=== PATIENT | female | born 1985 | race Caucasian/White ===

== ENCOUNTER 2022-02-20 20:05 | Emergency (ER) | payer BC, SELFPAY ==
[2022-02-20 20:58] VITALS: BP 131/87; PULSE 98; RESP 18; TEMP 36.7; O2SAT 100; BMI 39.2
--- NOTE | 2022-02-20 21:03 | US_ITS ---
PROCEDURE INFORMATION: Exam: US , Transvaginal Exam date and time: 02/20/2022 10:02 PM Age: 36 years old Clinical indication: complicated by abdominal or pelvic pain; Other: Bilateral pelvic pain; Gestational age or lmp: Unknown; TECHNIQUE: Imaging protocol: Real-time transvaginal obstetrical ultrasound of the maternal pelvis with image documentation. Transvaginal imaging was used for better evaluation of the fetus, adnexa, and/or cervix. COMPARISON: No relevant prior studies available. FINDINGS: Gestation: Single intrauterine gestation. Ultrasonographic age of 6 weeks and 0 days. heart rate: No cardiac activity is observed. Placenta: No subchorionic hemorrhage. BIOMETRY: [place]Rump length (CRL): [place]-rump length is 3 mm. MATERNAL: Right ovary/adnexa: Right ovary measures 3 x 2.5 x 2.5 cm. Normal vascularity. No mass. Left ovary/adnexa: Left ovary measures 2.6 x 1.9 x 3.1 cm. Normal vascularity. No mass. IMPRESSION: Intrauterine gestation with crown-rump length of 3 mm equivalent to 6 weeks and 0 days. No cardiac activity is observed at this time and these findings could be due to the early gestational state. Recommend continued follow-up with beta HCG and short-term ultrasound.
[2022-02-20 21:08] LABS: Microscopic, Urine URINE MICROSCOPIC (MICROSCOPIC)
[2022-02-20 21:09] LABS: Basophils # 0.5 K/mm3 (0-0.2); Basophils % 2.9 % (0.1-2.0); Eosinophils # 0.2 K/mm3 (0.0-0.4); Hematocrit 45.5 % (37.0-47.0); Hemoglobin 15.2 g/dL (12.2-16.2); Lymphocytes # 3.4 K/mm3 (0.7-4.5); Lymphocytes % 19.8 % (10-50); Mean Corpuscular HGB Conc 33.4 g/dL (31.8-35.4); Mean Corpuscular Hemoglobin 31.5 pg (27.0-31.2); Mean Corpuscular Volume 94.4 fl (81-99); Mean Platelet Volume 7.7 fl (7.4-10.4); Monocytes % 6.1 % (1.7-9.3); Neutrophils % 70.2 % (37.0-80.0); Platelet Count 410 K/mm3 (142-424); Red Blood Count 4.82 M/mm3 (4.20-5.40); Red Cell Distribution Width 13.6 % (11.5-17.5); White Blood Count 17.1 K/mm3 (4.8-10.8)
[2022-02-20 21:11] LABS: Chloride 103 mmol/L (98-107); Potassium 3.4 mmoL/L (3.5-5.1); Sodium 136 mmol/L (136-145)
[2022-02-20 21:12] LABS: Appearance,Urine SL CLOUDY (Clear); Bilirubin,Urine Negative (Negative); Blood, Urine 2+ (Negative); Color,Urine YELLOW (Yellow); Glucose,Urine (UA) Negative (Negative); Ketones,Urine Negative (Negative); Leukocyte Esterase,Urine 1+ (Negative); MANUAL DIFFERENTIAL MANUAL DIFFERENTIAL (MANUAL DIFF); Nitrate,Urine Negative (Negative); Protein,Urine Negative (Negative); Urobilinogen,Urine 0.2 EU/dl (0.2)
[2022-02-20 21:14] LABS: Alanine Aminotransferase 32 U/L (12-78); Albumin/Globulin Ratio 1.4 (1.1-1.8); Alkaline Phosphatase 72 U/L (38-126); Anion Gap 10.4 mEq/L (5-15); Aspartate Amino Transferase 29 U/L (14-36); Bilirubin,Total 0.4 mg/dl (0.2-1.3); Blood Urea Nitrogen 10 mg/dl (7-17); Calcium 9.7 mg/dl (8.4-10.2); Carbon Dioxide 26 mmol/L (22.0-30.0); Creatinine Clearance Estimated 148 mL/min (50-200); Estimated Glomerular Filt Rate 82 ml/min (>60); GFR (African American) 99 ML/MIN (>60); Globulin 2.9 g/dL (1.3-3.2); Glucose 110 mg/dl (74-100); HCG Qualitative, Serum Positive (Negative); Total Protein,Serum 6.9 g/dl (6.3-8.2)
[2022-02-20 21:31] LABS: HCG,Quantitative 4878 mIU/ml (0-5.42)
[2022-02-20 21:34] LABS: Eosinophils % 1 % (0-3); Lymphocytes % 21 % (10-50); Neutrophils % 66 % (42-76); Platelet Estimate Normal; RBC Morphology Normal; Total Cells Counted 100
[2022-02-20 21:39] LABS: Bacteria,Urine 1+ /lpf
--- NOTE | 2022-02-20 21:43 | HMH.EDPREG ---
ED Disposition Clinical Impression: Qualifiers: Weeks of gestation: less than 8 weeks Qualified Code(s): Z3A.01 - Less than 8 weeks gestation of Disposition: Home, Self-Care Condition on Discharge: Good Instructions: DI for -- Discomforts and Remedies Additional Instructions: pt to call pcp and ob next week for urine culture and f/u labs Referrals: Provider,Referral, MD [Primary Care Provider] - - Critical Care Critical Care Time: No Attestation: On 02/20/22, the high probability of a clinically significant, sudden or life threatening deterioration of the following system(s) required my full and direct attention, intervention and personal management. The time I documented below is in addition to time spent performing reported procedures but includes the following listed in this critical care notation. Medical Decision Making - Medical Records Medical records reviewed: Yes: I reviewed the patient's medical records. - G[place]me[place] Inquiry Pt receiving controlled substance: No Vital Signs: 02/20/22 20:58 Temperature 98.0 F Temperature Source Oral Pulse Rate [Apical] 98 H Respiratory Rate 18 Blood Pressure [Right Arm] 131/87 Blood Pressure Mean [Right Arm] 101 Blood Pressure Source [Right Arm] Automatic Cuff Blood Pressure Position [Right Arm] Sitting 02 Sat by Pulse Oximetry 100 Oxygen Delivery Method Room Air - Lab Data Lab results reviewed: Yes: I reviewed the patient's lab results. Lab Results 02/20/22 20:55: Urine Color Yellow, Urine Appearance Sl cloudy, Urine pH 6.0, Ur Specific [place] 1.020, Urine Protein Negative, Urine Glucose (UA) Negative, Urine Ketones Negative, Urine Blood 2+, Urine Nitrate Negative, Urine Bilirubin Negative, Urine Urobilinogen 0.2, Ur Leukocyte Esterase 1+ A, Urine RBC 3-5, Urine WBC 3-5, Ur Squamous Epith Cells 3-5, Urine Bacteria 1+ 02/20/22 20:55: WBC 17.1 H, RBC 4.82, Hgb 15.2, Hct 45.5, MCV 94.4, MCH 31.5 H, MCHC 33.4, RDW 13.6, Plt Count 410, MPV 7.7, Neut % (Auto) 70.2, Lymph % (Auto) 19.8, [place] % (Auto) 6.1, Eos % (Auto) 1.0, Baso % (Auto) 2.9 H, Neut # (Auto) 12.0 H, Lymph # (Auto) 3.4, [place] # (Auto) 1.0, Eos # (Auto) 0.2, Baso # (Auto) 0.5 H, Total Counted 100, Neutrophils % (Manual) 66, Band Neutrophils % 12.0 H, Lymphocytes % (Manual) 21, Eosinophils % (Manual) 1, Platelet Estimate Normal, RBC Morphology Normal 02/20/22 20:55: Sodium 136, Potassium 3.4 L, Chloride 103, Carbon Dioxide 26, Anion Gap 10.4, BUN 10, Creatinine 0.80, Estimated Creat Clear 148, Estimated GFR 82, Est GFR ( Amer) 99, Glucose 110 H, Calcium 9.7, Total Bilirubin 0.4, AST 29, ALT 32, Alkaline Phosphatase 72, Total Protein 6.9, Albumin 4.0, Globulin 2.9, Albumin/Globulin Ratio 1.4, HCG, Quant [id number] H 02/20/22 20:55: Serum HCG, Qual Positive Result diagrams: 02/20/22 20:55 02/20/22 20:55 Orders (Tests/Meds): ORDERS Category Date Time Status Urine Culture Stat Micro 02/20/22 20:55 Received - US Data US Images: Pelvis ED US Reviewed: Yes: I have viewed radiologist's interpretation Findings Narrative: see report Medical Decision Narrative: iup but no fht and no def uti - will ask pt to follow up at this time HPI - General Chief complaint: Abdominal Pain Stated complaint: lower abd pain, [id number] Time Seen by Provider: 02/20/22 21:43 Mode of Arrival: Ambulatory Source of Information: Patient, Medical Record Limitations: No Limitations Description of Symptoms (Recalled from ER Triage Doc. by RN): Patient c/o central lower abdominal pain. States the pain is sharp and constant. States that she found out she was two weeks ago but is unsure how far along she is. Does report that she has pain with urination - History of Present Illness HPI Narrative: acute pelvic pain today w/o vag bleeding or d/c - reports about 6 weeks - has pending ob appt next month - no uti sx MD Complaint: other (pelvic pain )
[2022-02-20 23:00] VITALS: BP 124/74; PULSE 90; RESP 18; TEMP 36.7; O2SAT 100
== END 2022-02-20 23:01 | disposition home or self-care (01) ==
PROVIDERS: Emergency Provider Emergency Medicine
DX: Z3A.01 Less than 8 weeks gestation of pregnancy (principal); R10.30 Lower abdominal pain, unspecified
CPT/HCPCS: 76817; 80053; 81001; 84702; 84703; 85007; 85025; 87086; 99284

== ENCOUNTER 2022-03-12 19:44 | Emergency (ER) | payer BC, SELFPAY ==
[2022-03-12 19:45] VITALS: BP 143/88; PULSE 88; RESP 16; TEMP 36.6; O2SAT 97; BMI 37.1
[2022-03-12 20:00] VITALS: BP 132/79; PULSE 80; O2SAT 97
[2022-03-12 20:11] LABS: Microscopic, Urine URINE MICROSCOPIC (MICROSCOPIC)
[2022-03-12 20:14] LABS: Basophils # 0.4 K/mm3 (0-0.2); Basophils % 2.7 % (0.1-2.0); Eosinophils # 0.3 K/mm3 (0.0-0.4); Eosinophils % 1.6 % (0.1-12.0); Hematocrit 45.1 % (37.0-47.0); Hemoglobin 15.1 g/dL (12.2-16.2); Lymphocytes # 3.7 K/mm3 (0.7-4.5); Lymphocytes % 22.9 % (10-50); Mean Corpuscular HGB Conc 33.6 g/dL (31.8-35.4); Mean Corpuscular Volume 95.3 fl (81-99); Mean Platelet Volume 7.6 fl (7.4-10.4); Monocytes # 0.8 K/mm3 (0.1-1.0); Monocytes % 5.1 % (1.7-9.3); Neutrophils # 10.8 K/mm3 (1.8-7.8); Neutrophils % 67.7 % (37.0-80.0); Platelet Count 444 K/mm3 (142-424); Red Blood Count 4.74 M/mm3 (4.20-5.40); Red Cell Distribution Width 13.7 % (11.5-17.5)
[2022-03-12 20:16] LABS: Urine Pregnancy, HCG Qual. Positive (Negative)
[2022-03-12 20:17] LABS: Appearance,Urine CLEAR (Clear); Bilirubin,Urine Negative (Negative); Blood, Urine 2+ (Negative); Color,Urine YELLOW (Yellow); Glucose,Urine (UA) Negative (Negative); Ketones,Urine Negative (Negative); Leukocyte Esterase,Urine 1+ (Negative); MANUAL DIFFERENTIAL MANUAL DIFFERENTIAL (MANUAL DIFF); Nitrate,Urine Negative (Negative); PH,Urine 6.5 (5.0-8.5); Protein,Urine Negative (Negative); Specific Gravity, Urine 1.025 (1.005-1.030)
[2022-03-12 20:22] LABS: Alanine Aminotransferase 28 U/L (12-78); Albumin/Globulin Ratio 1.3 (1.1-1.8); Alkaline Phosphatase 85 U/L (38-126); Amorphous Sediment,Urine 1+ /lpf; Anion Gap 10.9 mEq/L (5-15); Aspartate Amino Transferase 27 U/L (14-36); Blood Urea Nitrogen 9 mg/dl (7-17); Calcium 9.5 mg/dl (8.4-10.2); Calcium Oxalate Crystals,Urine 3+ /lpf; Carbon Dioxide 25 mmol/L (22.0-30.0); Chloride 104 mmol/L (98-107); Creatinine Clearance Estimated 128 mL/min (50-200); Estimated Glomerular Filt Rate 72 ml/min (>60); GFR (African American) 87 ML/MIN (>60); Glucose 101 mg/dl (74-100); Potassium 3.9 mmoL/L (3.5-5.1); Sodium 136 mmol/L (136-145); Squamous Epithelial Cell,Urine 20-50 #/hpf (0-5)
[2022-03-12 20:27] LABS: Bilirubin,Total 0.1 mg/dl (0.2-1.3); C-Reactive Protein 19.2 mg/L (0-4)
--- NOTE | 2022-03-12 20:30 | PC.NURSE ---
PT AWARE OF NEED FOR STOOL SAMPLE.
[2022-03-12 20:31] VITALS: BP 129/79; PULSE 83; O2SAT 98
--- NOTE | 2022-03-12 20:32 | US_ITS ---
PROCEDURE INFORMATION: Exam: US , Transvaginal Exam date and time: 03/12/2022 9:09 PM Age: 36 years old Clinical indication: Other: Midline abdomen pain; Gestational age or lmp: Lmp January 01 2022; ; Prior surgery; Surgery date: 6+ months; Surgery type: Gb and endometriosis surgey in past; Additional info: Abdominal pain TECHNIQUE: Imaging protocol: Real-time transvaginal obstetrical ultrasound of the maternal pelvis with image documentation. Transvaginal imaging was used for better evaluation of the fetus, adnexa, and/or cervix. COMPARISON: US OB TRANSVAGINAL 02/20/2022 10:02 PM FINDINGS: Gestation: Single live intrauterine gestation. Apparent contour abnormality of abdomen. heart rate: heart rate of 160 beats per minute. BIOMETRY: Gestational age (AUA): [place]-rump length of 1.91 cm, correlating with gestational age of 8 weeks 4 days. MATERNAL: Uterus: No subchorionic hemorrhage. Cervix: Closed cervix. Right ovary: Not visualized. No adnexal mass. Left ovary: Normal. No adnexal mass. Intraperitoneal space: No significant free fluid. IMPRESSION: 1. Single live intrauterine gestation. Apparent contour abnormality of abdomen, indeterminate significance. anomaly not excluded. Close sonographic follow-up is recommended.
[2022-03-12 20:40] LABS: Procalcitonin 0.056 ng/mL (0.0-2.0)
--- NOTE | 2022-03-12 20:50 | HMH.EDPREG ---
ED Disposition Clinical Impression: GERD (gastroesophageal reflux disease) Qualifiers: Esophagitis presence: esophagitis presence not specified Qualified Code(s): K21.9 - Gastro-esophageal reflux disease without esophagitis Qualifiers: Weeks of gestation: 8 weeks Qualified Code(s): Z3A.08 - 8 weeks gestation of Disposition: Home, Self-Care Condition on Discharge: Good Instructions: DI for -- Discomforts and Remedies Additional Instructions: fluids and see dr umana fo close follow up Prescriptions: Famotidine [Pepcid] 40 mg PO DAILY #30 tab Transmission Status: Pending to [facility] Promethazine HCl [Phenergan 25mg tab] 25 mg PO Q6H PRN #30 tab PRN Reason: Nausea And Vomiting Transmission Status: Pending to [facility] Referrals: Provider,MD Conrad [Primary Care Provider] - Larry Umana MD [Staff Physician] - - Critical Care Critical Care Time: No Attestation: On 03/12/22, the high probability of a clinically significant, sudden or life threatening deterioration of the following system(s) required my full and direct attention, intervention and personal management. The time I documented below is in addition to time spent performing reported procedures but includes the following listed in this critical care notation. Medical Decision Making - Medical Records Medical records reviewed: Yes: I reviewed the patient's medical records. - Gómez Inquiry Pt receiving controlled substance: No Vital Signs: 03/12/22 19:45 03/12/22 20:00 03/12/22 20:31 Temperature 97.9 F Temperature Source Oral Pulse Rate 80 83 Pulse Rate [Left Radial] 88 Respiratory Rate 16 Blood Pressure 132/79 129/79 Blood Pressure [Right Arm] 143/88 H Blood Pressure Mean [Right Arm] 106 Blood Pressure Source [Right Arm] Automatic Cuff 02 Sat by Pulse Oximetry 97 97 98 Oxygen Delivery Method Room Air Room Air Room Air 03/12/22 21:55 03/12/22 22:00 Temperature Temperature Source Pulse Rate 76 80 Pulse Rate [Left Radial] Respiratory Rate Blood Pressure 100/57 L 120/65 Blood Pressure [Right Arm] Blood Pressure Mean [Right Arm] Blood Pressure Source [Right Arm] 02 Sat by Pulse Oximetry 97 97 Oxygen Delivery Method Room Air Room Air - Lab Data Lab results reviewed: Yes: I reviewed the patient's lab results. Lab Results 03/12/22 19:53: Urine Color Yellow, Urine Appearance Clear, Urine pH 6.5, Ur Specific [place] 1.025, Urine Protein Negative, Urine Glucose (UA) Negative, Urine Ketones Negative, Urine Blood 2+, Urine Nitrate Negative, Urine Bilirubin Negative, Urine Urobilinogen 1.0, Ur Leukocyte Esterase 1+ A, Urine RBC 5-10, Urine WBC 5-10, Ur Squamous Epith Cells 20-50, Calcium Oxalate Crystal 3+, Amorphous Sediment 1+ 03/12/22 19:53: C-Reactive Protein 19.2 H, HCG, Quant [id number] H 03/12/22 19:53: WBC 16.0 H, RBC 4.74, Hgb 15.1, Hct 45.1, MCV 95.3, MCH 32.0 H, MCHC 33.6, RDW 13.7, Plt Count 444 H, MPV 7.6, Neut % (Auto) 67.7, Lymph % (Auto) 22.9, [place] % (Auto) 5.1, Eos % (Auto) 1.6, Baso % (Auto) 2.7 H, Neut # (Auto) 10.8 H, Lymph # (Auto) 3.7, [place] # (Auto) 0.8, Eos # (Auto) 0.3, Baso # (Auto) 0.4 H, Total Counted 100, Neutrophils % (Manual) 68, Lymphocytes % (Manual) 31, Monocytes % (Manual) 1 L, Platelet Estimate Normal, ESR 27 H 03/12/22 19:53: Sodium 136, Potassium 3.9, Chloride 104, Carbon Dioxide 25, Anion Gap 10.9, BUN 9, Creatinine 0.90, Estimated Creat Clear 128, Estimated GFR 72, Est GFR ( Amer) 87, Glucose 101 H, Calcium 9.5, Total Bilirubin 0.1 L, AST 27, ALT 28, Alkaline Phosphatase 85, Total Protein 7.0, Albumin 4.0, Globulin 3.0, Albumin/Globulin Ratio 1.3 03/12/22 19:53: Urine HCG, Qual Positive 03/12/22 19:53: Procalcitonin 0.056 03/12/22 19:53: Lipase 73 Result diagrams: 03/12/22 19:53 03/12/22 19:53 Orders (Tests/Meds): ED MEDICATIONS Generic Name Dose Route Start Last Admin Trade Name Freq PRN Reason Stop Dose A
[2022-03-12 20:58] LABS: Lymphocytes % 31 % (10-50); Monocytes % 1 % (2-9); Neutrophils % 68 % (42-76); Platelet Estimate Normal; Total Cells Counted 100
--- NOTE | 2022-03-12 20:58 | PC.NURSE ---
pt gone to RAD for u/s
[2022-03-12 21:12] LABS: Lipase 73 U/L (23-300)
[2022-03-12 21:21] LABS: Erythrocyte Sedimentation Rate 27 mm/hr (0-20)
--- NOTE | 2022-03-12 21:35 | PC.NURSE ---
Pt back from RAD
[2022-03-12 21:55] VITALS: BP 100/57; PULSE 76; O2SAT 97
[2022-03-12 22:00] VITALS: BP 120/65; PULSE 80; O2SAT 97
[2022-03-12 22:25] LABS: HCG,Quantitative 49006 mIU/ml (0-5.42)
--- NOTE | 2022-03-12 22:43 | PC.NURSE ---
Dr. Dong carrillo
--- NOTE | 2022-03-12 22:52 | PC.NURSE ---
speaking to Dr. Umana
[2022-03-12 23:18] VITALS: BP 120/74; PULSE 83; RESP 16; TEMP 36.8; O2SAT 96
== END 2022-03-12 23:21 | disposition home or self-care (01) ==
PROVIDERS: Emergency Provider Emergency Medicine
DX: O99.611 Diseases of the digestive system complicating pregnancy, first trimester (principal); R19.7 Diarrhea, unspecified; K21.9 Gastro-esophageal reflux disease without esophagitis; Z79.899 Other long term (current) drug therapy; Z88.5 Allergy status to narcotic agent; Z88.8 Allergy status to other drugs, medicaments and biological substances; Z3A.10 10 weeks gestation of pregnancy
CPT/HCPCS: 76817; 80053; 81001; 81025; 83690; 84145; 84702; 85007; 85025; 85651; 86140; 87086; 96361; 96374; 96375; 99283; J2405

== ENCOUNTER → 2022-04-17 16:03 | Outpatient (CLI) | payer BC, SELFPAY | PROVIDERS: Visit Provider Obstetrics & Gynecology | DX: R10.31 Right lower quadrant pain (principal) ==

== ENCOUNTER 2022-04-17 16:06 | Emergency (ER) | payer BC, SELFPAY ==
--- NOTE | 2022-04-17 16:17 | HMH.EDGENADL ---
ED Disposition Clinical Impression: Abdominal pain affecting Disposition: Home, Self-Care Condition on Discharge: Fair Additional Instructions: You have been evaluated for abdominal pain and . Ultrasound today shows a single living intrauterine gestation at 13 weeks. We have not definitively excluded all possible disease processes, specifically appendicitis, obstructing kidney stone. Since you are pain-free, I believe it is reasonable for you to go home tonight. However, should pain return or you have any other new or worsening symptoms like fevers, chills, vomiting, vaginal bleeding, it is very important that you return to an emergency department at once. You would need to have an MRI of the abdomen and pelvis completed urgently. Something like appendicitis could be life-threatening for you or the fetus. Otherwise, please follow-up with your [facility] as scheduled. Referrals: Provider,Referral, [Primary Care Provider] - Time of Disposition: 18:23 - Critical Care Critical Care Time: No Attestation: On 04/17/22, the high probability of a clinically significant, sudden or life threatening deterioration of the following system(s) required my full and direct attention, intervention and personal management. The time I documented below is in addition to time spent performing reported procedures but includes the following listed in this critical care notation. Medical Decision Making - Medical Records Medical records reviewed: Yes: I reviewed the patient's medical records. - Gómez Inquiry Pt receiving controlled substance: No Vital Signs: 04/17/22 16:20 04/17/22 16:53 04/17/22 17:00 Temperature 98.7 F Temperature Source Oral Pulse Rate 100 H 89 Pulse Rate [Left Radial] 102 H Respiratory Rate 17 18 18 Blood Pressure 110/64 123/71 Blood Pressure [Right Arm] 129/86 Blood Pressure Mean 87 95 Blood Pressure Mean [Right Arm] 100 02 Sat by Pulse Oximetry 97 98 99 04/17/22 18:00 Temperature Temperature Source Pulse Rate 90 Pulse Rate [Left Radial] Respiratory Rate 18 Blood Pressure 100/48 L Blood Pressure [Right Arm] Blood Pressure Mean 67 Blood Pressure Mean [Right Arm] 02 Sat by Pulse Oximetry 98 - Lab Data Lab Results 04/17/22 16:18: Urine Color Yellow, Urine Appearance Sl cloudy, Urine pH 6.0, Ur Specific [place] 1.025, Urine Protein Negative, Urine Glucose (UA) Negative, Urine Ketones Negative, Urine Blood 2+, Urine Nitrate Negative, Urine Bilirubin Negative, Urine Urobilinogen 1.0, Ur Leukocyte Esterase Negative, Urine RBC 5-10, Urine WBC 3-5, Ur Squamous Epith Cells 5-10, Urine Bacteria 1+ 04/17/22 16:41: WBC 18.7 H, RBC 4.23, Hgb 13.0, Hct 38.6, MCV 91.3, MCH 30.9, MCHC 33.8, RDW 13.0, Plt Count 353, MPV 6.9 L, Neut % (Auto) 75.0, Lymph % (Auto) 18.1, [place] % (Auto) 5.4, Eos % (Auto) 1.1, Baso % (Auto) 0.4, Neut # (Auto) 14.0 H, Lymph # (Auto) 3.4, [place] # (Auto) 1.0, Eos # (Auto) 0.2, Baso # (Auto) 0.1, Total Counted 100, Neutrophils % (Manual) 81 H, Lymphocytes % (Manual) 13, Monocytes % (Manual) 6, Platelet Estimate Normal, Hypochromasia 2+, Microcytosis 1+ 04/17/22 16:41: Sodium 135 L, Potassium 3.4 L, Chloride 104, Carbon Dioxide 24, Anion Gap 10.4, BUN 9, Creatinine 0.70, Estimated Creat Clear 163, Estimated GFR 96, Est GFR ( Amer) 116, Glucose 113 H, Calcium 9.4, Total Bilirubin 0.3, AST 26, ALT 24, Alkaline Phosphatase 73, Total Protein 6.7, Albumin 3.7, Globulin 3.0, Albumin/Globulin Ratio 1.2, HCG, Quant [id number] H Result diagrams: 04/17/22 16:41 04/17/22 16:41 Orders (Tests/Meds): ORDERS Category Date Time Status US OB <= 14 weeks fetus Stat Exams 04/17/22 16:30 Taken Medical Decision Narrative: In summary this is a 36-year-old female presenting to the emergency department with intermittent right lower quadrant abdominal pain. She is 13 weeks . Clinically stable on arrival. Tachycardic to 102 beats minute. Other vital signs with
[2022-04-17 16:20] VITALS: BP 129/86; PULSE 102; RESP 17; TEMP 37.1; O2SAT 97; BMI 36.7
[2022-04-17 16:29] LABS: Microscopic, Urine URINE MICROSCOPIC (MICROSCOPIC)
--- NOTE | 2022-04-17 16:30 | PC.NURSE ---
lab at the bedside for blood draw
--- NOTE | 2022-04-17 16:30 | US_ITS ---
PROCEDURE INFORMATION: Exam: US First Trimester, Transabdominal Exam date and time: 04/17/22 05:09 PM Age: 36 years old Clinical indication: complicated by abdominal or pelvic pain; Right lower quadrant; First trimester (<14 weeks 0 days); Gestational age or lmp: 13 w 2 d per PT; ; Patient HX: PT present with rlq pain that corresponds to RT ov-- 13 wk preg; Additional info: R lower abd pain TECHNIQUE: Imaging protocol: Real-time transabdominal obstetrical ultrasound of the maternal pelvis and a first trimester , less than 14 weeks 0 days, with image documentation. COMPARISON: US OB TRANSVAGINAL 03/12/22 09:09 PM FINDINGS: GESTATION: Gestation: Single living Intrauterine gestation 13 weeks 6 days +/-2 weeks by crown-rump length measurements. Yolk sac is unremarkable. Embryonic/ heart rate: 156 bpm Extra-embryonic membranes/Placenta: Unremarkable. No subchorionic bleed. Amniotic fluid: Amniotic and extra-amniotic fluid are normal for gestational age. BIOMETRY: Gestational age (AUA): 13 weeks 6 days +/-2 weeks by crown-rump length measurements. MATERNAL: Uterus: Unremarkable. Cervix: Unremarkable. Right ovary/adnexa: Normal. Left ovary/adnexa: Normal with corpus luteum cyst. Intraperitoneal space: No intraperitoneal free fluid. IMPRESSION: Single living intrauterine gestation 13 weeks 6 days +/-2 weeks with positive cardiac activity.
[2022-04-17 16:35] LABS: Appearance,Urine SL CLOUDY (Clear); Bilirubin,Urine Negative (Negative); Blood, Urine 2+ (Negative); Color,Urine YELLOW (Yellow); Glucose,Urine (UA) Negative (Negative); Ketones,Urine Negative (Negative); Leukocyte Esterase,Urine Negative (Negative); Nitrate,Urine Negative (Negative); Protein,Urine Negative (Negative); Specific Gravity, Urine 1.025 (1.005-1.030)
--- NOTE | 2022-04-17 16:36 | PC.NURSE ---
MD requests u/s be called in. radiology notified and u/s being called in at this time
[2022-04-17 16:42] LABS: Bacteria,Urine 1+ /lpf
[2022-04-17 16:49] LABS: Basophils # 0.1 K/mm3 (0-0.2); Basophils % 0.4 % (0.1-2.0); Eosinophils # 0.2 K/mm3 (0.0-0.4); Eosinophils % 1.1 % (0.1-12.0); Hematocrit 38.6 % (37.0-47.0); Lymphocytes # 3.4 K/mm3 (0.7-4.5); Lymphocytes % 18.1 % (10-50); Mean Corpuscular HGB Conc 33.8 g/dL (31.8-35.4); Mean Corpuscular Hemoglobin 30.9 pg (27.0-31.2); Mean Corpuscular Volume 91.3 fl (81-99); Mean Platelet Volume 6.9 fl (7.4-10.4); Monocytes % 5.4 % (1.7-9.3); Platelet Count 353 K/mm3 (142-424); Red Blood Count 4.23 M/mm3 (4.20-5.40); White Blood Count 18.7 K/mm3 (4.8-10.8)
[2022-04-17 16:51] LABS: MANUAL DIFFERENTIAL MANUAL DIFFERENTIAL (MANUAL DIFF)
[2022-04-17 16:53] VITALS: BP 110/64; PULSE 100; RESP 18; O2SAT 98
[2022-04-17 16:54] LABS: Potassium 3.4 mmoL/L (3.5-5.1); Sodium 135 mmol/L (136-145)
[2022-04-17 16:55] LABS: Chloride 104 mmol/L (98-107)
[2022-04-17 16:57] LABS: Albumin Level 3.7 g/dl (3.5-5.0); Albumin/Globulin Ratio 1.2 (1.1-1.8); Blood Urea Nitrogen 9 mg/dl (7-17); Creatinine Clearance Estimated 163 mL/min (50-200); Estimated Glomerular Filt Rate 96 ml/min (>60); GFR (African American) 116 ML/MIN (>60); Total Protein,Serum 6.7 g/dl (6.3-8.2)
[2022-04-17 16:58] LABS: Alanine Aminotransferase 24 U/L (12-78); Alkaline Phosphatase 73 U/L (38-126); Anion Gap 10.4 mEq/L (5-15); Aspartate Amino Transferase 26 U/L (14-36); Bilirubin,Total 0.3 mg/dl (0.2-1.3); Calcium 9.4 mg/dl (8.4-10.2); Carbon Dioxide 24 mmol/L (22.0-30.0); Glucose 113 mg/dl (74-100)
[2022-04-17 17:00] VITALS: BP 123/71; PULSE 89; RESP 18; O2SAT 99
--- NOTE | 2022-04-17 17:05 | PC.NURSE ---
Pt going to ultrasound at this time.
--- NOTE | 2022-04-17 17:45 | PC.NURSE ---
pt returned from u/s
--- NOTE | 2022-04-17 17:47 | PC.NURSE ---
u/s tech giving verbal report to
[2022-04-17 17:52] LABS: Hypochromasia 2+; Lymphocytes % 13 % (10-50); Microcytosis 1+; Monocytes % 6 % (2-9); Neutrophils % 81 % (42-76); Platelet Estimate Normal; Total Cells Counted 100
[2022-04-17 18:00] VITALS: BP 100/48; PULSE 90; RESP 18; O2SAT 98
--- NOTE | 2022-04-17 18:03 | PC.NURSE ---
rounded on pt at this time. no needs by pt.
--- NOTE | 2022-04-17 18:14 | PC.NURSE ---
in to speak with pt about POC. explained to pt the u/s had normal finding and explained the risks of potential diagnosis that had not been revealed via u/s. expressed wanting pt to be transferred to another facility for further eval. pt states she is pain free and would like to eat and drink and did not want to be transferred.
[2022-04-17 19:10] VITALS: BP 122/66; PULSE 88; RESP 20; TEMP 37; O2SAT 100
== END 2022-04-17 19:10 | disposition home or self-care (01) ==
PROVIDERS: Emergency Provider Emergency Medicine
DX: O26.891 Other specified pregnancy related conditions, first trimester (principal); Z3A.13 13 weeks gestation of pregnancy; R10.31 Right lower quadrant pain
CPT/HCPCS: 36415; 76801; 80053; 81001; 84702; 85007; 85025; 99285